=== PATIENT | female | born 1990 | race Hispanic/Latino ===

== ENCOUNTER 2018-05-22 01:37 | Inpatient (IN) | payer OTHER, SELFPAY ==
[2018-05-22 02:34] LABS: Absolute Lymphocytes (CBC) 3.8 K/uL (0.7-4.9); Absolute Monocytes 0.9 K/uL (0.1-1.3); Absolute Neutrophil 12.8 K/uL (1.8-8.0); Basophils % 0.6 % (0-1.3); Eosinophils % 0.6 % (0-4.4); Hematocrit 35.2 % (36.0-45.0); Lymphocytes % 21.3 % (15.3-44.8); MCV 78.1 fL (80-100); MPV 8.7 fL (7.6-11.3); Monocytes % 4.8 % (3.3-12.3); RBC Red Blood Cell Count 4.51 M/uL (3.86-4.86)
[2018-05-22 02:52] LABS: Protime INR 1.13
[2018-05-22 03:06] LABS: ALT/SGPT 18 U/L (12-78); AST/SGOT 7 U/L (15-37); Albumin 2.9 g/dL (3.4-5.0); Alkaline Phosphatase 109 U/L (45-117); BUN Blood Urea Nitrogen 12 mg/dL (7-18); Bicarbonate 23 mmol/L (21-32); Bilirubin Direct < 0.1 mg/dL (0-0.2); Bilirubin Total 0.2 mg/dL (0.2-1.0); Glucose Level 152 mg/dL (74-106); Magnesium 1.7 mg/dL (1.8-2.4); NT PRO-BNP 51 pg/mL (<125); Potassium 3.7 mmol/L (3.5-5.1); Protein, Total 7.7 g/dL (6.4-8.2); Sodium Level 139 mmol/L (136-145); Troponin (Emerg Dept Use Only) < 0.02 ng/mL (0.0-0.045)
[2018-05-22 05:50] LABS: Urine Blood TRACE (NEG); Urine Glucose NEGATIVE (NEG); Urine Protein NEGATIVE (NEG); Urine Specific Gravity 1.025 (1.005-1.030)
[2018-05-22 06:02] LABS: Urine Bacteria >50 /HPF (<20)
[2018-05-22 06:03] LABS: Urine Culture Reflex Order REFLEXED
[2018-05-22] MEDS ORDERED: CEFTRIAXONE/SWI 1gm 1 GM/10 ML SYR ONE (06:48)
[2018-05-22] MEDS ORDERED: AZITHROMYCIN 500 MG/250 ML BAG ONE (06:48)
--- NOTE | 2018-05-22 06:52 | ER ---
Nurse's Notes [facility] Name: Barbara Purcell Age: 27 yrs Sex: Female : 1990 Arrival Date: 05/22/2018 Time: 01:38 Bed 6 Private MD: None, None Diagnosis: RML Pneumonia;subsegmental pulmonary embolism;chest pain Presentation: 05/22 01:49 Presenting complaint: Patient states: chest pain that radiates to back since yesterday, tl2 intermittent. Pt denies pain at this time. Pain worse with deep breath. Transition of care: patient was not received from another setting of care. Onset of symptoms was May 20, 2018. Risk Assessment: Do you want to hurt yourself or someone else? Patient reports no desire to harm self or others. Initial Sepsis Screen: Does the patient meet any 2 criteria? No. Patient's initial sepsis screen is negative. Does the patient have a suspected source of infection? No. Patient's initial sepsis screen is negative. Care prior to arrival: None. 01:49 Method Of Arrival: Wheelchair tl2 01:49 Acuity: MARILYNN 3 tl2 Triage Assessment: 01:51 General: Appears in no apparent distress. uncomfortable, Behavior is cooperative, tl2 appropriate for age, anxious. Pain: Denies pain. Neuro: Level of Consciousness is awake, alert, obeys commands, Oriented to person, place, time, situation. Cardiovascular: Denies nausea, palpitations, shortness of breath, Rhythm is sinus tachycardia Chest pain is described as mild, quality is sharp, is located in anterior chest wall radiates back episodes are intermittent. Respiratory: Airway is patent Respiratory effort is even, unlabored, Respiratory pattern is regular, symmetrical. GI: No signs and/or symptoms were reported involving the gastrointestinal system. : No signs and/or symptoms were reported regarding the genitourinary system. Derm: Skin is pale. 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 - Social history:: Smoking status: Patient/guardian denies using tobacco. - Ebola Screening: : No symptoms or risks identified at this time. Screenin:53 Abuse screen: Denies threats or abuse. Nutritional screening: No deficits noted. tl2 Tuberculosis screening: No symptoms or risk factors identified. Fall Risk None identified. Assessment: 01:54 Pain: Pain radiates to back Pain began 1 day ago. tl2 01:55 General: see triage assessment. tl2 02:30 Reassessment: Patient and/or family updated on plan of care and expected duration. Pain ea level reassessed. Patient is alert, oriented x 3, equal unlabored respirations, skin warm/dry/pink. 02:49 Reassessment: Patient appears in no apparent distress at this time. Patient and/or tl2 family updated on plan of care and expected duration. Pain level reassessed. Patient is alert, oriented x 3, equal unlabored respirations, skin warm/dry/pink. 04:56 Reassessment: IV's infiltrated in CT, MD notified, US placed at bedside for MD to tl2 attempt placement. 05:39 Reassessment: notified CT of successful IV placement. tl2 07:00 Reassessment: RECD REPORT FROM LOLY BOUCHER. 27YO HF P/W CP AND SOB. ADMIT IN PROCESS FOR bp PNEUMONIA AND NON-OBSTRUCTIVE PE. Vital Signs: 01:51 BP 153 / 86; Pulse 103; Resp 22; Temp 97.6(TE); Pulse Ox 97% on R/A; Weight 140.61 kg; tl2 Height 5 ft. 3 in. (160.02 cm); Pain 0/10; 02:30 BP 135 / 88; Pulse 101; Resp 18; Pulse Ox 98% ; ea 02:48 BP 134 / 79; Pulse 103; Resp 24; Pulse Ox 96% on R/A; tl2 03:44 BP 117 / 77; Pulse 91; Resp 12; Pulse Ox 99% on R/A; tl2 06:46 Pulse 84; Resp 25; Pulse Ox 100% on R/A; tl2 07:30 BP 91 / 53; Pulse 88; Resp 16; Pulse Ox 97% ; bp 08:51 BP 92 / 47; Pulse 90; Resp 12; Pulse Ox 98% ; bp 01:51 Body Mass Index 54.91 (140.61 kg, 160.02 cm) tl2 ED Course: 01:38 Patient arrived in ED. dl4 01:38 None, None is Private Physician. dl4 01:50 Triage completed. tl2 01:51 Arm band placed on right wrist. tl2 01:52 [facility] nh 01:52 Martin Aguila MD is Attending Physician. nh 01:53 Patient has correct armband on for positive identification. Bed in low position. Call tl2 light in reach. Side rails up X 1. Adult w/ patient. equipment monitor phototypesetting on. Pulse ox on. NIBP on. 01:53 Patient maintains SpO2 saturation greater than 95% on room air. tl2 01:54 EKG done. tl2 02:08 Missed attempt(s): 20 gauge in right antecubital area. tl2 02:13 Inserted saline lock: 22 gauge in left hand, using aseptic technique. Blood collected. tl2 02:24 X-ray completed. Portable x-ray completed in exam room. Patient tolerated procedure sg4 well. 02:26 XRAY Chest (1 view) In Process Unspecified. EDMS 03:29 Radiology exam delayed due to test not completed at this time. IV insertion kw1 attempt and/or patient not having appropriate IV at this time. 03:51 Urine Microscopic Only Sent. ds4 04:[address] via stretcher. kw1 04:30 Inserted saline lock: 20 gauge in right antecubital area, using aseptic technique. ea 04:35 Radiology exam delayed due to IV insertion attempt and/or patient not having kw1 appropriate IV at this time. 04:45 Missed attempt(s): 20 gauge in left antecubital area. Bleeding controlled, band aid ds4 applied, catheter tip intact. 05:38 Inserted saline lock: 18 gauge in left upper arm, using aseptic technique. placed by tl2 Dr. Aguila. 06:05 CT Chest For PE Angio In Process Unspecified. EDMS 06:49 Cherrie Zapata MD is Hospitalizing Provider. ps1 07:13 Reg Rodriguez, SANDER is Primary Nurse. bp 08:50 No provider procedures requiring assistance completed. Patient admitted, IV remains in bp place. Administered Medications: 07:00 Drug: Rocephin - (cefTRIAXone) 1 grams Route: IVPB; Infused Over: 30 mins; Site: left tl2 upper arm; 07:10 Follow up: IV Status: Completed infusion; IV Intake: 10ml bp 07:01 Drug: AZITHromycin 500 mg Route: IVPB; Infused Over: 1 hrs; Site: left upper arm; tl2 08:00 Follow up: IV Status: Completed infusion; IV Intake: 250ml bp 08:43 Not Given (Physician Discretion): Xarelto 20 mg PO once bp Intake: 07:10 IV: 10ml; Total: 10ml. bp 08:00 IV: 250ml; Total: 260ml. bp Outcome: 06:51 Decision to Hospitalize by Provider. ps1 08:51 Condition: stable bp 08:51 Instructed on the need for admit. 09:02 Admitted to Tele accompanied by tech, family with patient, via wheelchair, room 230, bp with chart, Report called to RUDDY BOUCHER 09:07 Patient left the ED. bp Signatures: Dispatcher [employer] EDMS Moni Turner, JOB TRACER JOB TRACER Prashanth Williamson ds4 Xochilt Cardenas RN RN tl2 Loly Tavares RN RN ea Peltier, Brian, RN RN bp Martin Aguila MD MD ps1 Wilhelm, Kimberly kw1 Trini Hughes sg4 Aayush Moreno dl4 Corrections: (The following items were deleted from the chart) 01:56 01:51 BP 153 / 86; Pulse 103bpm; Resp 22bpm; Pulse Ox 97% RA; 140.61 kg; Height 5 ft. 3 tl2 in.; BMI: 54.9; Pain 0/10; tl2
--- NOTE | 2018-05-22 06:52 | EDPHYS ---
Physician Documentation [facility] Name: Barbara Purcell Age: 27 yrs Sex: Female : 1990 Arrival Date: 05/22/2018 Time: 01:38 Bed 6 Private MD: None, None ED Physician Martin Aguila HPI: 05/22 03:19 This 27 yrs old Female presents to ER via Wheelchair with complaints of Chest nh Pain. 03:19 Onset: The symptoms/episode began/occurred acutely, just prior to arrival. Associated nh signs and symptoms: Pertinent positives: chest pain, shortness of breath. Modifying factors: The patient symptoms are alleviated by nothing, the patient symptoms are aggravated by nothing. The patient has not experienced similar symptoms in the past. The patient has not recently seen a physician. 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 - Social history:: Smoking status: Patient/guardian denies using tobacco. - Ebola Screening: : No symptoms or risks identified at this time. ROS: 03:19 Constitutional: Negative for fever, chills, and weight loss, Eyes: Negative for injury, nh pain, redness, and discharge, ENT: Negative for injury, pain, and discharge, Neck: Negative for injury, pain, and swelling, Abdomen/GI: Negative for abdominal pain, nausea, vomiting, diarrhea, and constipation, Back: Negative for injury and pain, : Negative for injury, bleeding, discharge, and swelling, MS/Extremity: Negative for injury and deformity, Skin: Negative for injury, rash, and discoloration, Neuro: Negative for headache, weakness, numbness, tingling, and seizure, Psych: Negative for depression, anxiety, suicide ideation, homicidal ideation, and hallucinations, Allergy/Immunology: Negative for hives, rash, and allergies, Endocrine: Negative for neck swelling, polydipsia, polyuria, polyphagia, and marked weight changes, Hematologic/Lymphatic: Negative for swollen nodes, abnormal bleeding, and unusual bruising. 03:19 Cardiovascular: Positive for chest pain. 03:19 Respiratory: Positive for shortness of breath. Exam: 03:19 Constitutional: This is a well developed, well nourished patient who is awake, alert, nh and in no acute distress. Head/Face: Normocephalic, atraumatic. Eyes: Pupils equal round and reactive to light, extra-ocular motions intact. Lids and lashes normal. Conjunctiva and sclera are non-icteric and not injected. Cornea within normal limits. Periorbital areas with no swelling, redness, or edema. ENT: Nares patent. No nasal discharge, no septal abnormalities noted. Tympanic membranes are normal and external auditory canals are clear. Oropharynx with no redness, swelling, or masses, exudates, or evidence of obstruction, uvula midline. Mucous membranes moist. Neck: Trachea midline, no thyromegaly or masses palpated, and no cervical lymphadenopathy. Supple, full range of motion without nuchal rigidity, or vertebral point tenderness. No Meningismus. Chest/axilla: Normal chest wall appearance and motion. Nontender with no deformity. No lesions are appreciated. Cardiovascular: Regular rate and rhythm with a normal S1 and S2. No gallops, murmurs, or rubs. Normal PMI, no JVD. No pulse deficits. Respiratory: Lungs have equal breath sounds bilaterally, clear to auscultation and percussion. No rales, rhonchi or wheezes noted. No increased work of breathing, no retractions or nasal flaring. Abdomen/GI: Soft, non-tender, with normal bowel sounds. No distension or tympany. No guarding or rebound. No evidence of tenderness throughout. Back: No spinal tenderness. No costovertebral tenderness. Full range of motion. Skin: Warm, dry with normal turgor. Normal color with no rashes, no lesions, and no evidence of cellulitis. MS/ Extremity: Pulses equal, no cyanosis. Neurovascular intact. Full, normal range of motion. Neuro: Awake and alert, GCS 15, oriented to person, place, time, and situation. Cranial nerves II-XII grossly intact. Motor strength 5/5 in all extremities. Sensory grossly intact. Cerebellar exam normal. Normal gait. Psych: Awake, alert, with orientation to person, place and time. Behavior, mood, and affect are within normal limits. Vital Signs: 01:51 BP 153 / 86; Pulse 103; Resp 22; Temp 97.6(TE); Pulse Ox 97% on R/A; Weight 140.61 kg; tl2 Height 5 ft. 3 in. (160.02 cm); Pain 0/10; 02:30 BP 135 / 88; Pulse 101; Resp 18; Pulse Ox 98% ; ea 02:48 BP 134 / 79; Pulse 103; Resp 24; Pulse Ox 96% on R/A; tl2 03:44 BP 117 / 77; Pulse 91; Resp 12; Pulse Ox 99% on R/A; tl2 06:46 Pulse 84; Resp 25; Pulse Ox 100% on R/A; tl2 07:30 BP 91 / 53; Pulse 88; Resp 16; Pulse Ox 97% ; bp 08:51 BP 92 / 47; Pulse 90; Resp 12; Pulse Ox 98% ; bp 01:51 Body Mass Index 54.91 (140.61 kg, 160.02 cm) tl2 MDM: 01:52 Patient medically screened. ar 03:19 Data reviewed: vital signs, nurses notes, lab test result(s), EKG, radiologic studies, nh I have discussed the patient's presentation/case with the attending Emergency Department Physician; and as a result, I will. 06:51 ED course: patient has not had episodes of hypotension. Has subsegmental PE, will start ps1 xarelto. Needs hypercoagulability workup. Has insurance, should be able to afford OP. Additionally with RML PNA vs other. Will start Rocephin and azithromycin. Admit. . 05/22 01:57 Order name: Basic Metabolic Panel; Complete Time: 03:11 ar 05/22 01:57 Order name: CBC with Diff; Complete Time: 02:49 ar 05/22 01:57 Order name: LFT's; Complete Time: 03:11 ar 05/22 01:57 Order name: Magnesium; Complete Time: 03:11 ar 05/22 01:57 Order name: NT PRO-BNP; Complete Time: 03:11 ar 05/22 01:57 Order name: PT-INR; Complete Time: 03:11 ar 05/22 01:57 Order name: Troponin (emerg Dept Use Only); Complete Time: 03:11 ar 05/22 01:57 Order name: D-Dimer; Complete Time: 03:11 ar 05/22 01:57 Order name: Flu; Complete Time: 03:11 ar 05/22 03:48 Order name: Urine Microscopic Only; Complete Time: 06:15 ds4 05/22 03:51 Order name: Urine Dipstick--Ancillary (enter results); Complete Time: 06:15 ds4 05/22 03:51 Order name: Urine --Ancillary (enter results); Complete Time: 06:15 ds4 05/22 06:04 Order name: Urine Culture EDMS 05/22 07:44 Order name: CBC with Automated Diff EDMS 05/22 01:57 Order name: XRAY Chest (1 view) ar 05/22 01:57 Order name: EKG; Complete Time: 01:59 ar 05/22 01:57 Order name: Cardiac monitoring; Complete Time: 01:59 ar 05/22 03:13 Order name: CT Chest For PE Angio ar 05/22 07:43 Order name: CONS Pharmacy Consult EDMS 05/22 07:44 Order name: Heart Healthy EDMS 05/22 07:44 Order name: CBC with Automated Diff EDMS 05/22 07:44 Order name: Comprehensive Metabolic Panel EDMS 05/22 07:44 Order name: Comprehensive Metabolic Panel EDMS 05/22 07:44 Order name: Protime (+INR) EDMS 05/22 07:44 Order name: Protime (+INR) EDMS 05/22 07:44 Order name: PTT, Activated Partial Thromb EDMS 05/22 07:44 Order name: PTT, Activated Partial Thromb EDMS 05/22 01:57 Order name: EKG - Nurse/Tech; Complete Time: 01:59 ar 05/22 01:57 Order name: IV Saline Lock; Complete Time: 02:13 ar 05/22 01:57 Order name: Labs collected and sent; Complete Time: 02:13 ar 05/22 01:57 Order name: O2 Per Protocol; Complete Time: 02:00 ar 05/22 01:57 Order name: O2 Sat Monitoring; Complete Time: 02:00 ar 05/22 01:57 Order name: Urine Dipstick-Ancillary (obtain specimen); Complete Time: 03:44 ar 05/22 01:57 Order name: Urine Test (obtain specimen); Complete Time: 03:44 nh Administered Medications: 07:00 Drug: Rocephin - (cefTRIAXone) 1 grams Route: IVPB; Infused Over: 30 mins; Site: left tl2 upper arm; 07:10 Follow up: IV Status: Completed infusion; IV Intake: 10ml bp 07:01 Drug: AZITHromycin 500 mg Route: IVPB; Infused Over: 1 hrs; Site: left upper arm; tl2 08:00 Follow up: IV Status: Completed infusion; IV Intake: 250ml bp 08:43 Not Given (Physician Discretion): Xarelto 20 mg PO once bp Disposition: 06:54 Co-signature as Attending Physician, Martin Aguila MD I agree with the assessment and ps1 plan of care. PA/MANAGER STARS's history reviewed, patient interviewed, and examined. Attestation: The patient's history, exam findings, diagnostics, and a summary of any interventions or procedures was reviewed in detail with Moni VELEZ. Disposition: 05/22/18 06:51 Hospitalization ordered by Cherrie Zapata for Observation. Preliminary diagnosis are RML Pneumonia, subsegmental pulmonary embolism, chest pain. - Bed requested for Telemetry/MedSurg (observation). - Status is Observation. bp - Condition is Stable. - Problem is new. - Symptoms are unchanged. UTI on Admission? No Signatures: Dispatcher [employer] Sara Clifford RN RN dw Cronk, Niki, FNP FNP ar Xochilt Cardenas RN RN tl2 Reg Rodriguez RN RN bp Singer, Phillip, MD MD ps1 Corrections: (The following items were deleted from the chart) 08:16 06:51 Hospitalization Ordered by Cherrie Zapata MD for Observation. Preliminary dw diagnosis is RML Pneumonia; subsegmental pulmonary embolism; chest pain. Bed requested for Telemetry/MedSurg (observation). Status is Observation. Condition is Stable. Problem is new. Symptoms are unchanged. UTI on Admission? No. ps1 08:32 08:16 05/22/2018 06:51 Hospitalization Ordered by Cherrei Zapata MD for Observation. dw Preliminary diagnosis is RML Pneumonia; subsegmental pulmonary embolism; chest pain. Bed requested for Telemetry/MedSurg (observation). Status is Observation. Condition is Stable. Problem is new. Symptoms are unchanged. UTI on Admission? No. dw 09:07 08:32 05/22/2018 06:51 Hospitalization Ordered by Cherrie Zapata MD for Observation. bp Preliminary diagnosis is RML Pneumonia; subsegmental pulmonary embolism; chest pain. Bed requested for Telemetry/MedSurg (observation). Status is Observation. Condition is Stable. Problem is new. Symptoms are unchanged. UTI on Admission? No. dw
[2018-05-22] MEDS ORDERED: ALBUTEROL 2.5 MG/3 ML NEB SOL NEB PRN (07:39)
[2018-05-22] MEDS ORDERED: IPRATROPIUM BROM 0.5MG/2.5ML NEB PRN (07:39)
[2018-05-22] MEDS ORDERED: ONDANSETRON 4 MG/2 ML VIAL IV PRN (07:39)
[2018-05-22] MEDS ORDERED: MORPHINE 2 MG/ML SYR IV PRN (07:39)
[2018-05-22] MEDS ORDERED: ACETAMINOPHEN 500 MG TAB PO PRN (07:39)
--- NOTE | 2018-05-22 07:50 | P.HP ---
Certification for Inpatient Patient admitted to: Inpatient With expected LOS: >2 Midnights Patient will require the following post-hospital care: None Practitioner: I am a practitioner with admitting privileges, knowledge of patient current condition, hospital course, and medical plan of care. Services: Services provided to patient in accordance with Admission requirements found in Title 42 Section 412.3 of the Code of Federal Regulations Patient History Date of Service: 05/22/18 Reason for admission: Shortness of breath History of Present Illness: Patient is a 27yo who is admitted to the hospital with shortness of breath. Patient has been sick for the last few days. She has been getting progressively more short of breath. She works at [employer] and is unsure if she has had any sick contacts. She has been running fever and has had shakes and chills. She told her mom to bring her into the emergency room. Her workup in the emergency room actually revealed a pulmonary embolism within the tertiary branches along with a pneumonic process. She will need to be admitted to the hospital. She is also morbidly obese but on does not have any other comorbidities. Hypoxic at this time. I think she will need to be admitted for inpatient hospitalization. - Past Medical/Surgical History Past Medical History: Patient denies medical history Past Surgical History: Patient denies surgical history - Family History Father Family History: Reviewed- Non-Contributory - Social History Smoking Status: Never smoker Alcohol use: No CD- Drugs: No Review of Systems 10-point ROS is otherwise unremarkable Physical Examination - Vital Signs Temperature: 100.9 F Blood Pressure: 120/70 Pulse: 85 Respirations: 18 Pulse Ox (%): 96 - Physical Exam General: Alert, In no apparent distress, Oriented x3 HEENT: Atraumatic, PERRLA, Mucous membr. moist/pink, EOMI, Sclerae nonicteric Neck: Supple, 2+ carotid pulse no bruit, No LAD, Without JVD or thyroid abnormality Respiratory: Diminished, Expiratory wheezes, Rhonchi/gurgles Cardiovascular: Regular rate/rhythm, Normal S1 S2, No murmurs Gastrointestinal: Normal bowel sounds, Soft and benign, Non-distended, No tenderness Musculoskeletal: No clubbing, No swelling, No tenderness Integumentary: No rashes Neurological: Normal gait, Normal speech, Normal strength at 5/5 x4 extr, Normal tone, Sensation intact, Cranial nerves 3-12 intact, Normal affect Lymphatics: No axilla or inguinal lymphadenopathy - Studies Laboratory Data (last 24 hrs) 05/22/18 02:10: PT 13.4 H, INR 1.13 05/22/18 02:10: WBC 17.6 H, Hgb 11.7 L, Hct 35.2 L, Plt Count 307 05/22/18 02:10: Sodium 139, Potassium 3.7, BUN 12, Creatinine 0.70, Glucose 152 H, Magnesium 1.7 L, Total Bilirubin 0.2, AST 7 L, ALT 18, Alkaline Phosphatase 109 Microbiology Data (last 24 hrs): 05/22/18 02:17 Nasopharnyx Influenza Type A Antigen Screen - Final 05/22/18 02:17 Nasopharnyx Influenza Type B Antigen Screen - Final Assessment & Plan - Problems (Diagnosis) (1) Pneumonia Current Visit: Yes Status: Acute (2) Pulmonary embolus Current Visit: Yes Status: Acute (3) Pleurisy Current Visit: Yes Status: Acute (4) Fever Current Visit: Yes Status: Acute - Plan 1. Continue with IV antibiotics 2. Awaiting sputum and blood culture 3. Repeat chest x-ray in am 4. CT scan of the chest w/ pneumonia in tertiary branches 5. Continue with nebs as needed 6. O2 per protocol 7. Continue with gentle hydration 8. Repeat labs including CBC and renal function in a.m. 9. GI and DVT prophylaxis Discharge Plan: Home Plan to discharge in: Greater than 2 days - Advance Directives Does patient have a Living Will: No Does patient have a Durable POA for Healthcare: No - Code Status/Comfort Care Code Status Assessed: Yes Code Status: Full Code Critical Care: No Time Spent Managing PTS Care (In Minutes): 50
[2018-05-22] MEDS ORDERED: RIVAROXABAN 20 MG TABLET PO SCH (08:00)
[2018-05-22] MEDS ORDERED: NA CHLORIDE 0.9% 1,000 ML IV SCH (08:00)
[2018-05-22] MEDS: APIXABAN 5 MG TABLET PO SCH ×2 (09:45→20:48)
--- NOTE | 2018-05-22 11:36 | RAD REPORT ---
EXAM DESCRIPTION: CT - Chest For Pe Angio - 05/22/2018 7:10 am CLINICAL HISTORY: Chest pain. CHEST PAIN COMPARISON: No comparisons TECHNIQUE: CT angiogram of the pulmonary arteries was performed with MIP. All CT scans are performed using dose optimization technique as appropriate and may include automated exposure control or mA/KV adjustment according to patient size. FINDINGS: No evidence of proximal pulmonary thromboembolism. Very small partially occlusive filling defects second order branch vessels in the right upper lobe and the are right lower lobe suggests jonas y distal pulmonary emboli, age undetermined. No acute aortic finding demonstrated. Airspace opacity is present in the medial right lung base, likely representing pneumonia. No significant pericardial or pleural fluid. No concerning bony finding. IMPRESSION: Small distal nonocclusive pulmonary emboli in the right upper lobe and right lower lobe. Age of these small pulmonary emboli is undetermined. Airspace opacity the medial right lung base likely represents pneumonia.
--- NOTE | 2018-05-22 11:40 | RAD REPORT ---
EXAM DESCRIPTION: RAD - Chest Single View - 05/22/2018 2:27 am CLINICAL HISTORY: CHEST PAIN Chest pain. COMPARISON: Chest For Pe Angio dated 05/22/2018 FINDINGS: Portable technique limits examination quality. Soft tissue fullness is seen in the right hilar region. The lungs are otherwise clear. The heart is n ormal in size. No displaced fractures.CT recommended.
[2018-05-22] MEDS: PIPER/TAZO/NS 3.375gm 3.375 GM/100 ML BAG IVPB SCH ×2 (15:09→21:20)
--- NOTE | 2018-05-22 20:21 | RAD REPORT ---
EXAM DESCRIPTION: US - Extrem Venous W Compress Nilo - 05/22/2018 7:58 pm CLINICAL HISTORY: rule out dvt Bilateral leg edema and swelling. COMPARISON: No comparisons TECHNIQUE: Real-time sonographic interrogation of the left and right lower extremity deep venous sys tems was performed. FINDINGS: Normal compressibility, flow augmentation, phasic flow and spontaneous flow is identified in both the left and right lower extremity deep venous systems. IMPRESSION: No sonographic evidence of left or right lower extremity deep venous thrombosis.
[2018-05-23] MEDS: PIPER/TAZO/NS 3.375gm 3.375 GM/100 ML BAG IVPB SCH ×3 (05:33→21:40)
[2018-05-23 06:18] LABS: Absolute Lymphocytes (CBC) 3.9 K/uL (0.7-4.9); Absolute Neutrophil 10.1 K/uL (1.8-8.0); Basophils % 0.5 % (0-1.3); Eosinophils % 1.1 % (0-4.4); Hematocrit 34.8 % (36.0-45.0); Lymphocytes % 25.6 % (15.3-44.8); MCV 78.7 fL (80-100); MPV 8.8 fL (7.6-11.3); Monocytes % 6.4 % (3.3-12.3); RBC Red Blood Cell Count 4.42 M/uL (3.86-4.86)
[2018-05-23 06:21] LABS: Protime INR 1.64
[2018-05-23 06:37] LABS: ALT/SGPT 18 U/L (12-78); AST/SGOT 9 U/L (15-37); Albumin 2.6 g/dL (3.4-5.0); Alkaline Phosphatase 105 U/L (45-117); BUN Blood Urea Nitrogen 10 mg/dL (7-18); Bicarbonate 25 mmol/L (21-32); Bilirubin Total 0.5 mg/dL (0.2-1.0); Glucose Level 97 mg/dL (74-106); Protein, Total 7.5 g/dL (6.4-8.2); Sodium Level 140 mmol/L (136-145)
--- NOTE | 2018-05-23 07:13 | EKG ---
Test Date: 2018-05-22 Test Time: 01:45:15 Java Portal Developer: KOFFI MEASUREMENT RESULTS: Intervals: Rate: 105 VT: 134 QRSD: 80 QT: 324 QTc: 428 [place]: P: 27 VT: 134 QRS: 11 T: 10 INTERPRETIVE STATEMENTS: Sinus tachycardia Otherwise normal ECG No previous ECG available for comparison Electronically Signed On 05-23-18 07:11:08 CONTINUOUS IMPROVEMENT ENGINEER by Adalberto Pennington
[2018-05-23] MEDS: APIXABAN 5 MG TABLET PO SCH ×2 (09:35→21:40)
--- NOTE | 2018-05-23 13:17 | P.PN ---
Subjective Date of Service: 05/23/18 Chief Complaint: Shortness of breath Subjective: No C/O voiced, Tolerating diet, Ambulating, Improving, Doing well Review of Systems 10-point ROS is otherwise unremarkable Physical Examination - Vital Signs Temperature: 97.7 F Blood Pressure: 105/52 Pulse: 88 Respirations: 20 Pulse Ox (%): 93 - Physical Exam General: Alert, In no apparent distress HEENT: Atraumatic, PERRLA, EOMI Neck: Supple, JVD not distended Respiratory: Clear to auscultation bilaterally, Normal air movement Cardiovascular: Regular rate/rhythm, Normal S1 S2 Gastrointestinal: Normal bowel sounds, No tenderness Musculoskeletal: No tenderness Integumentary: No rashes Neurological: Normal speech, Normal tone, Normal affect Lymphatics: No axilla or inguinal lymphadenopathy - Studies Medications List Reviewed: Yes Assessment And Plan - Current Problems (Diagnosis) (1) Pneumonia Onset Date: 05/23/18 Current Visit: Yes Status: Acute Plan: Pneumonia most likely secondary to bacterial infection -currently on IV Zosyn -Sputum Culture pending at this time -WBC trending down. If doing well anticipate discharge in 24-48 hr. Will continue to monitor here closely. Patient will need prescription of antibiotics when she is ready to go home. Qualifiers: Pneumonia type: due to unspecified organism Laterality: unspecified laterality Lung location: unspecified part of lung Qualified Code(s): J18.9 - Pneumonia, unspecified organism (2) Pulmonary embolus Onset Date: 05/23/18 Current Visit: Yes Status: Acute Plan: Most likely secondary to OCPs -started on Eliquis -ultrasound of the lower extremity negative for any DVT Qualifiers: Pulmonary embolism type: other Chronicity: acute Acute cor pulmonale presence: without acute cor pulmonale Qualified Code(s): I26.99 - Other pulmonary embolism without acute cor pulmonale Discharge Plan: Home Plan to discharge in: 48 Hours - Code Status/Comfort Care Code Status Assessed: Yes Critical Care: No
[2018-05-24] MEDS: PIPER/TAZO/NS 3.375gm 3.375 GM/100 ML BAG IVPB SCH ×2 (05:52→13:53)
[2018-05-24 05:59] LABS: Absolute Lymphocytes (CBC) 3.3 K/uL (0.7-4.9); Absolute Monocytes 0.8 K/uL (0.1-1.3); Absolute Neutrophil 10.2 K/uL (1.8-8.0); Basophils % 0.4 % (0-1.3); Eosinophils % 1.1 % (0-4.4); Hematocrit 35.8 % (36.0-45.0); Lymphocytes % 22.9 % (15.3-44.8); MCV 78.9 fL (80-100); MPV 8.6 fL (7.6-11.3); Monocytes % 5.6 % (3.3-12.3); RBC Red Blood Cell Count 4.54 M/uL (3.86-4.86)
[2018-05-24 06:09] LABS: BUN Blood Urea Nitrogen 10 mg/dL (7-18); Bicarbonate 26 mmol/L (21-32); Glucose Level 92 mg/dL (74-106); Magnesium 2.3 mg/dL (1.8-2.4); Potassium 3.7 mmol/L (3.5-5.1); Sodium Level 138 mmol/L (136-145)
[2018-05-24] MEDS: APIXABAN 5 MG TABLET PO SCH (08:35)
--- NOTE | 2018-05-24 09:33 | RAD REPORT ---
EXAM DESCRIPTION: Genarot Pa And Lat (2 Views)05/24/2018 7:57 am CLINICAL HISTORY: Cough COMPARISON: May 22 FINDINGS: Patchy opacity within the mid right lung has developed. Right lower lobe opacity is unchan ged. There has been development of mild left lower lobe atelectasis The heart is borderline enlarged
--- NOTE | 2018-05-24 11:24 | ECHO ---
HEIGHT: 5 ft 3 in WEIGHT: 315 lb 0 oz DATE OF STUDY: 05/24/[address]: Mika Barrios DO 2-DIMENSIONAL: YES M.MODE: YES DOPPLER: YES COLOR FLOW: YES TDS: YES PORTABLE: NO DEFINITY: NO BUBBLE STUDY: NO DIAGNOSIS: ACUTE PULMONARY EMOBLUS CARDIAC HISTORY: CATHERIZATION: NO SURGERY: NO PROSTHETIC VALVE: NO PACEMAKER: NO MEASUREMENTS (cm) DIASTOLIC (NORMALS) SYSTOLIC (NORMALS) IVSd 1.3 (0.6-1.2) LA Diam 3.6 (1.9-4.0) LVEF 50% LVIDd 4.5 (3.5-5.7) LVIDs 3.4 (2.0-3.5) %FS 25% LVPWd 1.1 (0.6-1.2) Ao Diam 2.4 (2.0-3.7) 2 DIMENSIONAL ASSESSMENT: RIGHT ATRIUM: NORMAL LEFT ATRIUM: NORMAL RIGHT VENTRICLE: NORMAL LEFT VENTRICLE: NORMAL TRICUSPID VALVE: NORMAL MITRAL VALVE: NORMAL PULMONIC VALVE: NORMAL AORTIC VALVE: NORMAL PERICARDIAL EFFUSION: NONE AORTIC ROOT: NORMAL LEFT VENTRICULAR WALL MOTION: NORMAL. DOPPLER/COLOR FLOW: TRACE OF TRICUSPID REGURGITATION. COMMENTS: NORMAL 2D ECHO. TRACE OF TRICUSPID REGURGITATION- NORMAL VARIANT NO PULMONARY HYPERTENSION. NO EFFUSION. TECHNOLOGIST: LEE GREEN
--- NOTE | 2018-05-24 15:59 | P.DS ---
Admission Date: 05/22/18 Discharge Date: 05/24/18 Primary Care Provider: None Disposition: ROUTINE DISCHARGE Discharge Condition: GOOD Reason for Admission: Shortness of breath Consultations: Pulmonary-Dr. Marvin Procedures: CT chest: COMPARISON: No comparisons TECHNIQUE: CT angiogram of the pulmonary arteries was performed with MIP. All CT scans are performed using dose optimization technique as appropriate and may include automated exposure control or mA/KV adjustment according to patient size. FINDINGS: No evidence of proximal pulmonary thromboembolism. Very small partially occlusive filling defects second order branch vessels in the right upper lobe and the are right lower lobe suggests very distal pulmonary emboli, age undetermined. No acute aortic finding demonstrated. Airspace opacity is present in the medial right lung base, likely representing pneumonia. No significant pericardial or pleural fluid. No concerning bony finding. IMPRESSION: Small distal nonocclusive pulmonary emboli in the right upper lobe and right lower lobe. Age of these small pulmonary emboli is undetermined. Airspace opacity the medial right lung base likely represents pneumonia. Echo: Ejection fraction 50% LEFT VENTRICULAR WALL MOTION: NORMAL. DOPPLER/COLOR FLOW: TRACE OF TRICUSPID REGURGITATION. COMMENTS: NORMAL 2D ECHO. TRACE OF TRICUSPID REGURGITATION- NORMAL VARIANT NO PULMONARY HYPERTENSION. NO EFFUSION. Chest x-ray: COMPARISON: May 22 FINDINGS: Patchy opacity within the mid right lung has developed. Right lower lobe opacity is unchanged. There has been development of mild left lower lobe atelectasis The heart is borderline enlarged Venous Doppler: COMPARISON: No comparisons TECHNIQUE: Real-time sonographic interrogation of the left and right lower extremity deep venous systems was performed. FINDINGS: Normal compressibility, flow augmentation, phasic flow and spontaneous flow is identified in both the left and right lower extremity deep venous systems. IMPRESSION: No sonographic evidence of left or right lower extremity deep venous thrombosis. Medical problem list: Shortness of breath secondary to Small distal nonocclusive pulmonary emboli in the right upper lobe and right lower lobe complicated with right medial lung base pneumonia and left lower lobe atelectasis Obesity, BMI 55.8 GERD Brief History of Present Illness: 27-year-old female presented to the emergency room with increasing shortness of breath and fever. Patient evaluated in the emergency room. Patient found to have small distal nonocclusive pulmonary emboli in the right upper lobe and right lower lobe. She was also found to have right medial lung base pneumonia with left lower lobe atelectasis. The patient was admitted for treatment. Hospital Course: Patient presented with shortness of breath secondary to small distal nonocclusive pulmonary emboli in the right upper lobe and right lower lobe. This was also complicated with a right medial lung base pneumonia and left lobe atelectasis. Patient was started on antibiotic therapy and anti coagulation therapy. Patient responded to medications well. Echocardiogram shows normal ejection fraction. No heart strain identified. Venous Doppler of the lower extremity showed no DVT. Etiology of pulmonary embolism unknown but could be related to pneumonia. Age of Pulmonary embolism could not be determined. Patient previously on contraceptive medication many months ago. Patient to remain off contraceptive medication. Patient seen by Pulmonary. Recommendation is to continue with Eliquis 10 mg 1 pill twice daily for 7 days then 5 mg 1 pill twice daily for 3-6 months. Patient will follow up with pulmonology in 1 week to follow up this hospitalization and continue her care. Patient will also continue with Augmentin 875 mg 1 pill twice daily for 7 days for the pneumonia. Recommendation is to recheck chest x-ray in 2-4 weeks to monitor resolution. Education on pneumonia and pulmonary embolism will be provided. Patient likely has underlying GERD. Patient will continue with Pepcid 20 mg 1 pill twice daily. Lifestyle modification education addressed in detail. BMI is 55.8. Vital Signs/Physical Exam: Temp Pulse Resp BP Pulse Ox 97 F 86 20 113/58 L 96 05/24/18 12:00 05/24/18 12:00 05/24/18 12:00 05/24/18 12:00 05/24/18 12:00 General: Alert, In no apparent distress, Oriented x3, Cooperative HEENT: Atraumatic, Mucous membr. moist/pink Neck: Supple, No Thyromegaly Respiratory: Clear to auscultation bilaterally, Normal air movement Cardiovascular: Normal pulses, Regular rate/rhythm Gastrointestinal: Normal bowel sounds, Soft and benign, Non-distended, No tenderness, No masses, No rebound, No guarding Musculoskeletal: No erythema, No tenderness, No warmth Integumentary: No tenderness/swelling, No erythema, No warmth, No cyanosis Neurological: Normal speech, Normal strength at 5/5 x4 extr, Normal tone, Normal affect Lymphatics: No axilla or inguinal lymphadenopathy Laboratory Data at Discharge: WBC 14.6 K/uL (4.3-10.9) H 05/24/18 05:25 Hgb 11.8 g/dL (12.0-15.0) L 05/24/18 05:25 Hct 35.8 % (36.0-45.0) L 05/24/18 05:25 Plt Count 317 K/uL (152-406) 05/24/18 05:25 PT 19.4 SECONDS (9.5-12.5) H 05/23/18 05:50 INR 1.64 05/23/18 05:50 APTT 38.2 SECONDS (24.3-36.9) H 05/23/18 05:50 Sodium 138 mmol/L (136-145) 05/24/18 05:25 Potassium 3.7 mmol/L (3.5-5.1) 05/24/18 05:25 BUN 10 mg/dL (7-18) 05/24/18 05:25 Creatinine 0.60 mg/dL (0.55-1.3) 05/24/18 05:25 Glucose 92 mg/dL (74-106) 05/24/18 05:25 Magnesium 2.3 mg/dL (1.8-2.4) D 05/24/18 05:25 Total Bilirubin 0.5 mg/dL (0.2-1.0) 05/23/18 05:50 AST 9 U/L (15-37) L 05/23/18 05:50 ALT 18 U/L (12-78) 05/23/18 05:50 Alkaline Phosphatase 105 U/L (45-117) 05/23/18 05:50 Home Medications: Amox/Clavulanate [Augmentin 875-125 Tab*] 875 mg PO BID #14 tab 05/24/18 Apixaban [Eliquis] 5 mg PO BID #60 tablet 05/24/18 Apixaban [Eliquis] 10 mg PO BID #28 tablet 05/24/18 Famotidine [Pepcid] 20 mg PO BID #60 tab 05/24/18 New Medications: Amox/Clavulanate [Augmentin 875-125 Tab*] 875 mg PO BID #14 tab Apixaban [Eliquis] 10 mg PO BID #28 tablet Apixaban [Eliquis] 5 mg PO BID #60 tablet Famotidine [Pepcid] 20 mg PO BID #60 tab Patient Discharge Instructions: 1. Patient will need follow up with a PCP in 1 week to follow up this hospitalization. 2. Patient presented with shortness of breath secondary to small distal nonocclusive pulmonary emboli in the right upper lobe and right lower lobe. This was also complicated with a right medial lung base pneumonia and left lobe atelectasis. Patient was started on antibiotic therapy and anti coagulation therapy. Patient responded to medications well. Echocardiogram shows normal ejection fraction. No heart strain identified. Venous Doppler of the lower extremity showed no DVT. Etiology of pulmonary embolism unknown but could be related to pneumonia. Age of Pulmonary embolism could not be determined. Patient previously on contraceptive medication many months ago. Patient to remain off contraceptive medication. Patient seen by Pulmonary. Recommendation is to continue with Eliquis 10 mg 1 pill twice daily for 7 days then 5 mg 1 pill twice daily for 3- 6 months. Patient will follow up with pulmonology in 1 week to follow up this hospitalization and continue her care. Patient will also continue with Augmentin 875 mg 1 pill twice daily for 7 days for the pneumonia. Recommendation is to recheck chest x-ray in 2-4 weeks to monitor resolution. Education on pneumonia and pulmonary embolism will be provided. 3. Patient likely has underlying GERD. Patient will continue with Pepcid 20 mg 1 pill twice daily. 4. Lifestyle modification education addressed in detail. BMI is 55.8. Diet: AHA Activity: Fall precautions Time spent managing pt's care (in minutes): 55
--- NOTE | 2018-05-24 17:43 | P.CNS ---
Date of Consult: 05/24/18 Reason for Consult: Right lung pneumonia possible PE Primary Care Provider: None Chief Complaint: Shortness of breath History of Present Illness: Patient is 27 years of age previously healthy admitted with right sided pleuritic chest pain patient woke up with it associated with some shortness of breath denies any fever chills cough sputum hemoptysis no prior history of cardiopulmonary disorders feeling well and was found to have incidental subsegmental pulmonary embolism on the right side on the right and left-sided feeling better now chest x-ray shows an infiltrate on the right side with elevated white count Allergies No Known Allergies Allergy (Unverified 05/22/18 09:02) Home Medications: Amox/Clavulanate [Augmentin 875-125 Tab*] 875 mg PO BID #14 tab 05/24/18 Apixaban [Eliquis] 5 mg PO BID #60 tablet 05/24/18 Apixaban [Eliquis] 10 mg PO BID #28 tablet 05/24/18 Famotidine [Pepcid] 20 mg PO BID #60 tab 05/24/18 - Family History Father Family History: Reviewed- Non-Contributory Notes: living and healthy Mother Notes: living and healthy - Social History Alcohol use: No CD- Drugs: No Caffeine use: Yes Place of Residence: Home Review of Systems 10-point ROS is otherwise unremarkable Physical Examination Temp Pulse Resp BP Pulse Ox 97.9 F 86 20 121/60 96 05/24/18 16:00 05/24/18 16:00 05/24/18 16:00 05/24/18 16:00 05/24/18 16:00 General: Alert, Oriented x3, Cooperative Respiratory: Clear to auscultation bilaterally Cardiovascular: No edema, Normal S1 S2 Gastrointestinal: Normal bowel sounds, Soft and benign - Problems (1) Pneumonia Onset Date: 05/23/18 Current Visit: Yes Status: Acute Plan: Patient is 27 years of age admitted with right-sided pleuritic pain she has a right upper lobe pneumonia white count is elevated cultures are negative vital signs are satisfactory saturation is normal no cultures done patient has been instructed to follow up with me in 2 weeks chemistries reviewed Qualifiers: Pneumonia type: due to unspecified organism Laterality: unspecified laterality Lung location: unspecified part of lung Qualified Code(s): J18.9 - Pneumonia, unspecified organism (2) Pulmonary embolus Onset Date: 05/23/18 Current Visit: Yes Status: Acute Plan: Patient admitted with an incidental finding off small pulmonary emboli in the right upper and lower lobe the age undetermined doubt if is this is acute plan to anti coagulated for 3 months and then change it to possible the aspirin here in does not have any risk factors for thromboembolism Qualifiers: Pulmonary embolism type: other Chronicity: acute Acute cor pulmonale presence: without acute cor pulmonale Qualified Code(s): I26.99 - Other pulmonary embolism without acute cor pulmonale
[2018-05-24] MEDS ORDERED: AMOX/K CLAV 875 MG TAB PO SCH (21:00)
== END 2018-05-24 18:25 | disposition home or self-care (01) | DRG 193 ==
LOC: ER 01:37 → ERHOLD 07:41 → 2ND 09:04
PROVIDERS: ADMIT Hospitalist; ATTEND Family Medicine
DX: J18.9 Pneumonia, unspecified organism (principal); I26.99 Other pulmonary embolism without acute cor pulmonale; J98.11 Atelectasis; Z68.43 Body mass index [BMI] 50.0-59.9, adult; K21.9 Gastro-esophageal reflux disease without esophagitis; E66.01 Morbid (severe) obesity due to excess calories
CPT/HCPCS: 36415; 71045; 71046; 71275; 80048; 80053; 80076; 81003; 81015; 81025; 83735; 83880; 84484; 85025; 85379; 85610; 85730; 87086; 87088; 87804; 93005; 93306; 93970; 96365; 96375; 99285; J0456; J0696; J2543; Q9967